=== PATIENT | female | born 1985 | race Caucasian/White ===

== ENCOUNTER 2017-11-12 08:16 | Emergency (ER) | payer MEDICAID, OTHER ==
[2017-11-12 08:36] VITALS: BP 129/81
--- NOTE | 2017-11-12 09:02 | UC ---
Complaint Female HPI - HPI Summary HPI Summary: 32 year old with urinary concerns. FREQUENCY URGENCY BURNING ON URINATION X 4 DAYS. no fever. no flank pain. no vomiting. no vaginal discharge. has had no previous UTI [ End ] - History Of Current Complaint Chief Complaint: UCGU Stated Complaint: URINARY Time Seen by Provider: 11/12/17 09:01 Hx Obtained From: Patient Hx Last Menstrual Period: 10/16/17 Onset/Duration: Gradual Onset Timing: Constant Severity Initially: Mild Severity Currently: Moderate Pain Intensity: 0 Associated Signs And Symptoms: Positive: Negative - Allergies/Home Medications Allergies/Adverse Reactions: Allergies Allergy/AdvReac Type Severity Reaction Status Date / Time No Known Allergies Allergy Verified 08/09/14 21:24 Home Medications: Home Medications Norgestimate-Ethinyl Estradiol [Ortho-Cyclen 28 Tablet] 1 each PO DAILY [History Confirmed 11/12/17] PMH/Surg Hx/FS Hx/Imm Hx Previously Healthy: Yes - Surgical History Surgical History: Yes Surgery Procedure, Year, and Place: [place], wisdom teeth - Family History Known Family History: Positive: None - Social History Occupation: Employed Full-time Alcohol Use: Rare Substance Use Type: None Smoking Status (MU): Never Smoked Tobacco - Immunization History Most Recent Influenza Vaccination: Not the Season Review of Systems Genitourinary: Dysuria, Frequency, Urgency Is Patient Immunocompromised?: No All Other Systems Reviewed And Are Negative: Yes Physical Exam Triage Information Reviewed: Yes Appearance: Well-Appearing, No Pain Distress, Well-Nourished Vital Signs: Initial Vital Signs Temp 98.6 F 11/12/17 08:30 Pulse 69 11/12/17 08:30 Resp 15 11/12/17 08:30 BP 129/81 11/12/17 08:30 Pulse Ox 99 11/12/17 08:30 Vital Signs Reviewed: Yes Eye Exam: Normal ENT Exam: Normal Dental Exam: Normal Neck exam: Normal Neck: Positive: 1 Respiratory Exam: Normal Cardiovascular Exam: Normal Abdominal Exam: Normal Abdomen Description: Positive: Nontender, Soft, Other: - mild tenderness suprapubic. Negative: CVA Tenderness (R), CVA Tenderness (L), Distended, Guarding Musculoskeletal Exam: Normal Neurological Exam: Normal Psychological Exam: Normal Skin Exam: Normal Complaint Female Dx - Course Course Of Treatment: she desires to start treatment and if neg culture then stop abx. push fluids. she is aware of Se from abx - Differential Dx/Diagnosis Differential Diagnosis/HQI/PQRI: Ureteral Stone, Urinary Tract Infection Provider Diagnoses: uti Discharge - Sign-Out/Discharge Documenting (check all that apply): Discharge/Admit/Transfer - Discharge Plan Condition: Good Disposition: HOME Prescriptions: Phenazopyridine TAB* [Pyridium 100 mg TAB*] 100 mg PO TID #6 tab Sulfamethox/Trimethoprim DS* [Bactrim DS 800/160 TAB*] 1 tab PO BID #10 tab Patient Education Materials: Urinary Tract Infection in Women (ED) Referrals: Brittany Toscano MD [Primary Care Provider] - 4 Days (if needed ) - Billing Disposition and Condition Condition: GOOD Disposition: Home
--- NOTE | 2017-11-14 06:59 | UC ---
- Progress Note Progress Note: NOTIFY PT NO UTI STOP ANTIBIOTIC RECHECK IF STILL SYMPTOMATIC Discharge - Sign-Out/Discharge Documenting (check all that apply): Post-Discharge Follow Up - Discharge Plan Condition: Good Disposition: HOME Prescriptions: Phenazopyridine TAB* [Pyridium 100 mg TAB*] 100 mg PO TID #6 tab Sulfamethox/Trimethoprim DS* [Bactrim DS 800/160 TAB*] 1 tab PO BID #10 tab Patient Education Materials: Urinary Tract Infection in Women (ED) Referrals: Brittany Toscano MD [Primary Care Provider] - 4 Days (if needed ) - Billing Disposition and Condition Condition: GOOD Disposition: Home
== END 2017-11-12 09:12 | disposition home or self-care (01) ==
LOC: UCCORT 08:16
DX: N39.0 Urinary tract infection, site not specified (principal)
CPT/HCPCS: 81003; 87086; 99202; G0463